=== PATIENT | female | born 1955 | race Caucasian/White ===

== ENCOUNTER 2018-11-03 00:34 | Day surgery (SDC) | payer BC ==
[~2018-11-03] VITALS: Ht 157.5 cm; Wt 79.8 kg
[2018-11-03] MEDS ORDERED: GLYCOPYRROLATE 0.2MG/ML 1 ML INJ IVP ONE (08:35)
[2018-11-03] MEDS ORDERED: LIDOCAINE MPF 1% 5 ML VIAL ONE (10:39)
[2018-11-03] MEDS ORDERED: PROPOFOL EMUL(*) 10MG/ML 20 ML 40 ML ONE (10:39)
[2018-11-03] MEDS ORDERED: LIDOCAINE/SOD BICARB 8.4% SYR ID ONE (11:20)
[2018-11-03] MEDS ORDERED: NORMOSOL R SOLN(*) 1000 ML BAG 1,000 ML IV PRN (11:20)
[2018-11-03 11:36] VITALS: BP 150/76
[2018-11-03 12:20] VITALS: BP 108/54
[2018-11-03 13:00] VITALS: BP 111/55
[2018-11-03 13:39] VITALS: BP 114/75
[2018-11-03 13:57] VITALS: BP 118/60
--- NOTE | 2018-11-03 13:58 | NUR ---
[address] SNYDER ABOUT FLUCUATING O2 SATS ON ROOM AIR, ORDER RECEIVED FOR AEROBIKA, OKAY TO DC IF PT IS ASYMPTOMATIC. 1355 PT STATED UNDERSTANDING O FUSE OF AEROBIKA, NOT SYMPTOMATIC, NO RESP DISTRESS REPORTED OR NOTED. 1358 DR SNYDER AT BEDSIDE, DISCUSSING PLAN OF CARE, OKDEENA FOR DC
[2018-11-03 14:00] VITALS: BP 125/63
== END 2018-11-03 14:15 | disposition home or self-care (01) ==
LOC: OR 00:34
PROVIDERS: ATTEND Internal Medicine Gastroenterology
DX: K20.9 Esophagitis, unspecified (principal); K44.9 Diaphragmatic hernia without obstruction or gangrene; K29.70 Gastritis, unspecified, without bleeding
CPT/HCPCS: 43239; 43248; 88305; 88313; 88344; J2001; J2704; J3490

== ENCOUNTER → 2018-11-14 | Outpatient (CLI) | payer BC ==
--- NOTE | 2018-11-14 09:53 | RADIOLOGY IMAGING REPORT ---
[place] [facility] [place] NAME: Jennifer Samayoa : 1955 MR: [id number] V: [id number] EXAM DATE: ORDERING PHYSICIAN: URI RODRIGUEZ TECHNOLOGIST: Location: [facility] [place] Patient: Jennifer Samayoa : 1955 Visit/Account:[id number] Date of Sevice: 11/14/2018 EXAMINATION: Ultrasound abdomen right upper quadrant HISTORY: Right upper quadrant pain. COMPARISON: None. FINDINGS: Gallbladder: Trace amount of nonshadowing sludge. No stones, wall thickening, pericholecystic fluid or sonographic [place] sign. Liver: Upper limits normal in size measuring 16.1 cm in length. Parenchyma is mildly coarse and hete rogeneous. 2 adjacent simple cysts in the left lobe measuring 7 mm each. No solid liver lesion visu alized. Portal vein is patent with hepatopetal flow. Liver surface is smooth. Common bile duct: Normal in size measuring 4.8 mm at the rebecca hepatis. Pancreas: Negative. Right kidney: Normal in size and echogenicity, measuring 8.8 cm in length. No hydronephrosis. 8 mm simple cortical cyst at the mid to superior pole. Upper abdominal aorta and IVC: Negative. Ascites: None. IMPRESSION: 1. Trace gallbladder sludge without cholelithiasis or acute cholecystitis. (The exam was ordered wi th Kinevac, but the patient refused the Kinevac portion). 2. Mild diffuse fatty infiltration of the liver versus underlying hepatocellular disease. 3. Subcentimeter simple hepatic cysts and right renal cyst. Report Dictated By: Jeanne Louie MD at 11/14/2018 9:45 AM Report E-Signed By: Jeanne Louie MD at 11/14/2018 9:50 AM WSN:[id number]
== END ==
LOC: US 10-31 01:21
PROVIDERS: ATTEND Nurse Practitioner Family
DX: N28.1 Cyst of kidney, acquired (principal); K76.89 Other specified diseases of liver; R10.11 Right upper quadrant pain
CPT/HCPCS: 76705